=== PATIENT | female | born 1945 | race Caucasian/White ===

== ENCOUNTER 2019-02-25 08:46 | Inpatient (IN) | payer MEDICARE ==
[2019-02-25] VITALS (32 sets, daily range): BP systolic 116–166; BP diastolic 62–97; BMI 26.0
[~2019-02-25] VITALS: Ht 157.5 cm; Wt 64.4 kg
--- NOTE | ~2019-02-25 | HEMODYNAMI ---
PATIENT:SUNI DESAI MEDICAL RECORD: [id number] : 47 [id number] ADMISSION DATE: 02/25/19 Generatedon:02/25/201910:31 Patient name: SUNI DESAI Patient #: [id number] SSN: : Date of study: 02/25/2019 Page: Of Hemodynamic Procedure Report Patient Data Patient Demographics Procedure consent was obtained First Name: SUNI Gender: Female Last Name: LLOYD : 1945 Patient #: [id number] Age: 73 year(s) Race: Unknown Additional ID: [id number] Contact details Address: [facility] State: [place] City: [place] Zip code: [address] Past Medical History Allergies Allergen Reaction Date Comments Reported Other allergy 02/25/2019 PCN Admission Admission Data Admission Date: 02/25/2019 Admission Time: 8:46 Procedure Procedure Types Cath Procedure Diagnostic Procedure LHC LH w/Coronaries Sedation Charges Moderate Sedation up to 15 minutes PCI Procedure Coronary Stent Coronary Stent Initial Procedure Description Procedure Date Procedure Date: 02/25/2019 Procedure Start Time: 9:31 Procedure End Time: 10:15 Procedure Staff Name Function Wilber Reddy MD Performing Physician Janette Au RT Monitor Ananya Raymond RT Scrub Tania Cai RN Nurse Procedure Data Cath Procedure Fluoroscopy Diagnostic fluoroscopy Total fluoroscopy Time: time: 11.1 min 11.1 min Diagnostic fluoroscopy Total fluoroscopy dose: dose: 1083 mGy 1083 mGy Contrast Material Contrast Material Type Amount (ml) Isovue 300 139 Entry Location Entry Primary Successful Side Size Upsize Upsize Entry Closure Succes sful Closure Location (Fr) 1 (Fr) 2 (Fr) Remarks Device Remarks Femoral Right 6 Fr Exoseal artery Short Estimated blood loss: 10 ml Diagnostic catheters Device Type Used For End Catheter Placement MULTIPACK Pigtail 5 Fr Procedure catheter MULTIPACK JL 4.0 5Fr Procedure catheter MULTIPACK 3DRC 5Fr Procedure catheter MULTIPACK JL 4.0 5Fr Procedure catheter MULTIPACK Pigtail 5 Fr Ventriculography catheter Procedure Complications No complications Procedure Medications Medication Administration Route Dosage 0.9% NaCl I.V. 100 ml/hr Oxygen etCO2 Nasal cannula 2 l/min Lidocaine 2% added to field 20 Heparin Flush Bag added to field 2 bags (1000units/500ml NS) Versed I.V. 1 mg Fentanyl I.V. 25 mcg Heparin Bolus I.V. 4500 units Nitroglycerin IC/IA I.C. 100 mcg Versed I.V. 1 mg Fentanyl I.V. 25 mcg Plavix P.O. 600 mg Integrilin Drip I.V. drip 5.5 ml/hr (75mg/100ml) Hemodynamics Rest Heart Rate: 108 (bpm) Pressure Samples Time Site Value (mmHg) Purpose Heart Use Rate(bpm) 9:51 LV 150/19,30 Snapshot 91 9:52 AO 156/89(114) Pullback 87 9:52 LV 152/13,26 Pullback 87 Gradients Valve Time Site 1 Site 2 Mean SEP/DFP Peak To Heart Use (mmHg) (sec/min) Peak Rate (mmHg) (bpm) Aortic 9:52 LV AO 0 87 152/13,26 156/89(114) Calculations Valve P-P Mean Valve Index Valve Source Name Gradient Area Flow (cm2) Aortic 0 0 Snapshots Pre Cath Intra NCS Post Cath Vital Signs Time Heart Resp SPO2 etCO2 NIBP (mmHg) Rhythm Pain Sedation Rate (ipm) (%) (mmHg) Status Level (bpm) 9:27:52 105 27 99 0 134/89(110) NSR 0 (11) 10(A) , No pain 9:31:59 102 29 100 0 121/76(101) NSR 0 (11) 10(A) , No pain 9:36:03 100 29 100 0 123/76(96) NSR 0 (11) 9(A) , No pain 9:41:00 90 25 100 0 140/78(103) NSR 0 (11) 9(A) , No pain 9:46:12 90 25 100 0 140/78(114) NSR 0 (11) 9(A) , No pain 9:50:21 90 25 98 0 142/80(109) NSR 0 (11) 9(A) , No pain 9:55:37 89 27 98 0 134/87(108) NSR 0 (11) 9(A) , No pain 9:59:42 89 26 98 0 139/80(124) NSR 0 (11) 9(A) , No pain 10:03:48 87 26 97 0 152/86(122) NSR 0 (11) 10(A) , No pain 10:08:12 92 23 98 0 101/60(78) NSR 0 (11) 10(A) , No pain 10:12:06 90 23 100 0 120/84(107) NSR 0 (11) 10(A) , No pain Medications Time Medication Route Dose Verified Delivered Reason Notes Effectiveness by by 9:27:24 0.9% NaCl I.V. 100 Wilber Tania used for ml/hr Barry Cai stock control clerk 9:27:35 Oxygen etCO2 2 Wilber Tania used for Nasal l/min Barry Cai procedure cannula RN 9:27:40 Lidocaine 2% added 20ml Wilber Wilber for local to vial Barry Reddy MD anesthetic field 9:27:45 Heparin Flush added 2 Wilber Wilber used for Bag to bags Barry Reddy MD procedure (1000units/500ml field NS) 9:31:31 Versed I.V. 1 mg Wilber Tania for sedation Barry Cai RN 9:31:37 Fentanyl I.V. 25 Wilber Tania for sedation mcg Barry Cai RN 10:04:03 Versed I.V. 1 mg Wilber Tania for sedation Barry Cai RN 10:04:06 Heparin Bolus I.V. 4500 Wilber Tania for verif ied units Barry Cai anticoagulation with Dr. LENA Reddy 10:04:13 Fentanyl I.V. 25 Wilber Tania for sedation mcg Barry Cai RN 10:04:24 Nitroglycerin I.C. 100 Wilber Wilber for IC/IA mcg Barry Reddy MD vasodilation 10:10:44 Plavix P.O. 600 Wilber Tania for mg Barry Cai antiplatelet RN therapy 10:21:02 Integrilin Drip I.V. 5.5 Wilber Tania for (75mg/100ml) drip ml/hr Barry Cai antiplatelet RN therapy Procedure Log Time Note 8:59:45 Tania Cai RN sent for patient. Start room use. 8:59:45 Time tracking: Regular hours (M-F 7:00 - 5:00) 8:59:50 Plan of Care:Hemodynamics will remain stable., Cardiac rhythm will remain stable., Comfort level will be maintained., Respiratory function will remain adequate., Patient/ family verbilizes understanding of procedure., Procedure tolerated without complication., Recovers from procedure without complications.. 9:15:01 Patient received from ED to CCL 2 Alert and oriented. Tansferred to table in Supine position. 9:15:02 Warm blankets applied, and raul hugger turned on for patient comfort. 9:15:02 Correct patient and procedure confirmed by team. 9:15:04 Signed procedure consent form obtained from patient. 9:15:11 ECG and BP/O2 sat monitors applied to patient. 9:22:52 H&P Date Dictated: 02/25/2019 ER History on chart.. 9:22:54 Pre-procedure instructions explained to patient. 9:22:58 Pre-op teaching completed and patient verbalized understanding. 9:23:05 Family unavailable. 9:23:07 Patient NPO since Midnight. 9:24:16 Patient allergic to Other allergyPCN 9:24:19 Is the patient allergic to Iodine/contrast media? No. 9:24:38 Is patient on blood thinner?No 9:24:47 Patient diabetic? No. 9:25:42 Previous problem with sedation/anesthesia? No ? 9:26:09 Snore? Yes 9:26:09 Sleep apnea? Yes 9:26:10 Deviated septum? No 9:26:11 Opens mouth fully? Yes 9:26:12 Sticks out tongue? Yes 9:26:14 Airway obstruction? No ? 9:26:16 Dentures? No ? 9:26:24 IV patent on arrival in right antecubital, left antecubital with 0.9% NaCl at O. 9:26:35 Lab results pending. 9:26:38 Right groin area was prepped with chlora-prep and draped in sterile fashion 9:26:39 Alarms reviewed by R. N. 9:26:40 Sharps counted by scrub and verified by R.N. 9:26:46 Use device set Femoral Dx 9:26:47 ACIST Syringe (23410) opened to sterile field. 9:26:47 Bag Decanter () opened to sterile field. 9:26:48 Medline Cath Pack ([id number]) opened to sterile field. 9:26:48 DIAGNOSTIC WIRE .035 260cm J wire (131280) opened to sterile field. 9:26:49 ACIST Hand Control (91420) opened to sterile field. 9:26:50 ACIST Manifold (46535) opened to sterile field. 9:26:50 DIAGNOSTIC Multipack 5Fr catheter set (PF0809) opened to sterile field. 9:26:51 Tegaderm 4 x 4 (1626W) opened to sterile field. 9:26:57 SHEATH 6FR [place] (ZHT038) opened to sterile field. 9:27:01 Vital chart was started 9:27:02 Baseline sample Acquired. 9:27:06 Rhythm: sinus rhythm , w/ ST elevation 9:27:08 Full Disclosure recording started 9:27:14 Physician arrived 9::14 --------ALL STOP TIME OUT------ 9:27:15 Final Timeout: patient, procedure, and site verified with staff and physician. All members of the team are in agreement. 9:27:16 Right groin site verified by team. 9:27:19 Maximum allowable Isovue 300 dose 300ml. Physician notified. (300ml for normal creatinines. For patients with creatinine of 1.7 or higher multiply weight(kg) x 5 divided by creatinine.) 9:27:21 Fire Safety Assessment: A--An alcohol-based skin anteseptic being used preoperatively., C--Open oxygen or nitrous oxide is being used., D--An ESU, laser, or fiber-optic light is being used. 9:27:24 0.9% NaCl 100 ml/hr I.V. was administered by Tania Cai RN; used for procedure; 9:27:25 Physical assessment completed. ASA score P 3 - A patient with severe systemic disease as per Wilber Reddy MD. 9:27:27 Sedation plan: IV Moderate Sedation Medication:Versed, Fentanyl 9:27:35 Oxygen 2 l/min etCO2 Nasal cannula was administered by Tania Cai RN; used for procedure; 9::40 Lidocaine 2% 20ml vial added to field was administered by Wilber Reddy MD; for local anesthetic; 9:27:45 Heparin Flush Bag (1000units/500ml NS) 2 bags added to field was administered by Wilber Reddy MD; used for procedure; 9:30:40 Use device set Femoral Dx 9:30:43 Procedure started. 9:31:05 Local anesthetic to right femoral artery with Lidocaine 2% by Wilber Reddy MD.INITIAL ACCESS ONLY 9:31:18 ACIST Syringe (17817) opened to sterile field. 9:31:19 Bag Decanter (2002) opened to sterile field. 9:31:19 Medline Cath Pack ([id number]) opened to sterile field. 9:31:20 DIAGNOSTIC WIRE .035 260cm J wire (496544) opened to sterile field. 9:31:23 ACIST Hand Control (75342) opened to sterile field. 9:31:24 ACIST Manifold (58439) opened to sterile field. 9:31:30 DIAGNOSTIC Multipack 5Fr catheter set (DA2626) opened to sterile field. 9:31:30 Tegaderm 4 x 4 (1626W) opened to sterile field. 9:31:31 Versed 1 mg I.V. was administered by Tania Cai RN; for sedation; 9:31:37 Fentanyl 25 mcg I.V. was administered by Tania Cai RN; for sedation; 9:31:43 SHEATH 6FR [place] (ZPV158) opened to sterile field. 9:31:58 A 6 Fr Short sheath was inserted into the Right Femoral artery 9:32:30 Zero performed for pressure channel P1 9:32:34 Zero performed for pressure channel P1 9:34:22 A MULTIPACK Pigtail 5 Fr catheter was advanced over the wire and used for Procedure. 9:34:28 Aortic Root visualized 9:36:44 A MULTIPACK JL 4.0 5Fr catheter was advanced over the wire and used for Procedure. 9:37:25 LCA angiography performed. 9:38:30 Catheter removed. 9:38:40 A MULTIPACK 3DRC 5Fr catheter was advanced over the wire and used for Procedure. 9:39:00 RCA angiography performed. 9:40:03 Catheter removed. 9:42:51 A MULTIPACK JL 4.0 5Fr catheter was advanced over the wire and used for Procedure. 9:46:13 LCA angiography performed. 9:46:23 Catheter removed. 9:47:31 A MULTIPACK Pigtail 5 Fr catheter was advanced over the wire and used for Ventriculography. 9:47:47 LV gram done using HUNTER 9:52:16 LV hemodynamics recorded. 9:52:28 EF : 40 % 9:55:47 Catheter removed. 9:55:55 INFLATOR Merit BasixCompak (MD3967) opened to sterile field. 9:57:12 BMW 300cm [place] 2 J wire ([id number]) opened to sterile field. 9:57:13 TUBING High Pressure Extension Tubing (Barry) (GO2502R) opened to sterile field. 9:57:14 GUIDE 6FR AR 1.0 SH catheter ([id number]) opened to sterile field. 9:57:33 Study PCI Site: [place] dRCA has 80% stenosis. 9:57:50 6 Fr AR1SH guide catheter was inserted over the wire 9:59:30 Catheter removed. unable to cannulate vessel. 9:59:49 GUIDE 6FR JR 4.0 SH catheter ([id number]) opened to sterile field. 10:00:09 6 Fr JR4SH guide catheter was inserted over the wire 10:00:55 BMW wire advanced. 10:04:03 Versed 1 mg I.V. was administered by Tania Cai RN; for sedation; 10:04:06 Heparin Bolus 4500 units I.V. was administered by Tania Cai RN; for anticoagulation; verified with Dr. Reddy 10:04:13 Fentanyl 25 mcg I.V. was administered by Tania Cai RN; for sedation; 10:04:24 Nitroglycerin IC/IA 100 mcg I.C. was administered by Wilber Reddy MD; for vasodilation; 10:08:53 Place stent Inflation Number: 1 A INTEGRITY OTW 2.75 X 26 stent ([id number]) was prepped and advanced across the Mid RCA. The stent was deployed at 11 XENIA for 0:17 (min:sec). 10:10:00 EXOSEAL 6Fr (EX600) opened to sterile field. 10:10:07 Wire removed. 10:10:08 Guide catheter removed. 10:10:22 Sheath removed intact; hemostasis achieved with Exoseal to the Right Femoral artery. 10:10:44 Plavix 600 mg P.O. was administered by Tania Cai RN; for antiplatelet therapy; 10:11:34 Procedure ended.(Physican Out) 10:11:48 Fluoroscopy time 11.10 minutes. 10:11:53 Fluoroscopy dose: 1083 mGy 10:11:53 Flurop Dose total: 1083 10:12:36 Contrast amount:Isovue 300 139ml. 10:12:37 Sharps counted by scrub and verified by R.N. 10:12:39 Insertion/operative site no bleeding no hematoma. 10:12:42 Post right femoral artery:stable 10:12:44 Post Procedure Pulses reassessed and unchanged 10:12:48 Post-procedure physical assessment completed. ASA score P 2 - A patient with mild systemic disease as per Wilber Reddy MD. 10:13:04 Post procedure rhythm: unchanged. 10:13:06 Estimated blood loss: 10 ml 10:13:08 Post procedure instruction explained to patient.Patient verbalizes understanding. 10:13:38 Procedure type changed to Cath procedure, Diagnostic procedure, LHC, LHC w/Coronaries, Sedation Charges, Moderate Sedation up to 15 minutes, PCI procedure, Coronary Stent, Coronary Stent Initial 10:13:40 Procedure and supply charges have been captured, reviewed, submitted and are correct. 10:14:51 Procedure Complication : No complications 10:14:55 Vital chart was stopped 10:14:58 See physician's report for complete and final results. 10:15:19 Report given to [facility]. 10:15:24 Patient transfered to [facility] with Bed. 10:15:26 Procedure ended. 10:15:26 Full Disclosure recording stopped 10:19:26 Femstop placed over the right femoral artery at 184 mmHg. Hemostasis achieved. 10:19:28 FEMSTOP Gold (P66714) opened to sterile field. 10:19:36 End room use (Document Last) 10:21:02 Integrilin Drip (75mg/100ml) 5.5 ml/hr I.V. drip was administered by Tania Cai RN; for antiplatelet therapy; 10:30:40 ACC-PCI Only Patient was given prescriptions, or instructed by Wilber Reddy MD to start/continue the following medications upon discharge: Plavix Intervention Summary Intervention Notes Time ActionType Lesion and Equipment Action# Pressure Duration Attributes Used 10:08:53 Place stent Mid RCA INTEGRITY 1 11 00:17 OTW 2.75 X 26 stent ([id number]) Device Usage Item Name Manufacture Quantity Catalog Hospital Part Current Minimal L ot# / Number Charge Number Stock Stock Serial# Code ACIST Acist 2 53883 153099 916134 555725 20 Syringe Medical (69667) Systems Inc Bag Microtek 2 2001S 535051 49119 568722 5 Decanter Medical Inc. () Medline Medline 2 [id number] 734032 92441 484123 5 Cath Pack ([id number]) DIAGNOSTIC St Amrik 2 128659 169439 109836 885917 30 WIRE .035 260cm J wire (839670) ACIST Hand Acist 2 21566 673361 279781 212829 5 Control Medical (14639) Systems Inc ACIST Acist 2 56411 792243 755705 757972 5 Manifold Medical (97915) Systems Inc DIAGNOSTIC Cardinal 2 PA8667 997753 49871 509971 30 Multipack Health 5Fr catheter set (CV5975) Tegaderm 4 3M 2 1626W 536148 376169 429314 5 x 4 (1626W) SHEATH 6FR Terumo 2 NAI115 922760 498089 571436 40 [place] (MZC752) MULTIPACK Cardinal 2 927749 5 Pigtail 5 Health Fr catheter MULTIPACK Cardinal 1 450156 5 JL 4.0 5Fr Health catheter MULTIPACK Cardinal 1 257707 5 3DRC 5Fr Health catheter INFLATOR Merit 1 BT7938 516825 804193 949332 15 [facility] Medical BasixCompak (AU4069) BMW 300cm Walker 1 [id number] 269973 387154 983834 5 [place] 2 Vascular J wire (5070792D) TUBING High Merit 1 GO3881Y 490494 33746 116319 10 Pressure Medical Extension Tubing (Reddy) (OY1473C) GUIDE 6FR Medtronic 1 [id number] 811714 91538 330993 1 AR 1.0 SH catheter (XL3LJ22DW) GUIDE 6FR Medtronic 1 [id number] 435812 15420 255975 1 JR 4.0 SH catheter (SO3WN20DR) INTEGRITY Medtronic 1 [id number] 223553 609200 988167 1 0 [id number] OTW 2.75 X 26 stent ([id number]) EXOSEAL 6Fr Cardinal 1 EX600 917421 691962 543298 10 (EX600) Health FEMSTOP St Amrik 1 X28419 188844 058957 446861 5 Gold (T08991) Signature Audit [place] Stage Time Signature Unsigned Intra-Procedure 02/25/2019 Janette Au 10:30:56 AM RT(R) Signatures Monitor : Janette Au Signature : RT Date : Time : [address] [place] [address]
[2019-02-25] MEDS ORDERED: COZAAR50 MG (09:14)
[2019-02-25] MEDS ORDERED: PEPCID AC20 MG PO (09:14)
[2019-02-25] MEDS ORDERED: TOPAMAX50 MG PO (09:14)
[2019-02-25] MEDS ORDERED: EFFEXOR XR150 MG PO (09:14)
[2019-02-25] MEDS ORDERED: ADVAIR HFA 230-12 GM INH (09:15)
[2019-02-25] MEDS ORDERED: PROVENTIL/2.5 MG/3 M INH (09:15)
[2019-02-25 12:21] LABS: BASOPHILS 0.1 % (0-2); EOSINOPHILS 0.1 % (0-7); HEMATOCRIT 32.6 % (36.0-48.0); HEMOGLOBIN 10.9 g/dL (12-16); IMMATURE GRANULOCYTES 0.3 % (0-5); LYMPHOCYTES 4.7 % (15-50); MCH 31.5 pg (26.0-34.0); MCHC 33.4 g/dL (31.0-37.0); MCV 94.2 fL (80.0-100.0); MEAN PLATELET VOLUME 11.2 fL (7.4-10.4); MONOCYTES 6.4 % (2-11); NEUTROPHILS 88.4 % (40-80); PLATELET COUNT 209 10x3/uL (130-400); RBC 3.46 10x6/uL (4.00-5.40); WBC 18.4 10x3/uL (4.8-10.8)
[2019-02-25 12:40] LABS: ANION GAP 18.2 mmol/L (8-16); CALCIUM 8.9 mg/dL (8.5-10.1); CARBON DIOXIDE 19.8 mmol/L (21.0-32.0); CREATININE - SERUM 1.8 mg/dL (0.6-1.3)
[2019-02-25 13:12] LABS: INR 1.69 (0.85-1.17); PROTIME 19.3 SECONDS (11.6-15.0)
[2019-02-25 13:49] LABS: APTT > 200.0 SECONDS (22.8-39.4)
[2019-02-25 13:58] LABS: ALBUMIN 2.3 g/dL (3.4-5.0); ANION GAP 17.7 mmol/L (8-16); BILIRUBIN - TOTAL 0.46 mg/dL (0.2-1.3); CALCIUM 8.9 mg/dL (8.5-10.1); CARBON DIOXIDE 20.4 mmol/L (21.0-32.0); CHOL - HDL RATIO 2.4 ratio (2.3-4.1); CREATININE - SERUM 1.8 mg/dL (0.6-1.3); LDL-HDL RATIO 1.1 ratio (1.5-3.5); POTASSIUM - SERUM 3.1 mmol/L (3.5-5.1); PROTEIN - SERUM 6.3 g/dL (6.4-8.2)
[2019-02-25 18:19] LABS: HEMATOCRIT 27.3 % (36.0-48.0); HEMOGLOBIN 9.3 g/dL (12-16)
[2019-02-26] VITALS (25 sets, daily range): BP systolic 105–166; BP diastolic 54–101; Ht 157.5 cm; Wt 64.4 kg
[2019-02-26 01:09] LABS: HEMATOCRIT 23.7 % (36.0-48.0)
[2019-02-26 06:43] LABS: HEMATOCRIT 26.3 % (36.0-48.0); HEMOGLOBIN 9.2 g/dL (12-16); MCH 31.1 pg (26.0-34.0); MCV 88.9 fL (80.0-100.0); MEAN PLATELET VOLUME 11.1 fL (7.4-10.4); PLATELET COUNT 196 10x3/uL (130-400); RBC 2.96 10x6/uL (4.00-5.40); RDW 15.3 % (11.5-14.5); WBC 23.3 10x3/uL (4.8-10.8)
[2019-02-26 06:59] LABS: ANION GAP 20.1 mmol/L (8-16); BILIRUBIN - TOTAL 0.38 mg/dL (0.2-1.3); CALCIUM 8.2 mg/dL (8.5-10.1); CARBON DIOXIDE 15.3 mmol/L (21.0-32.0); PHOSPHOROUS 6.1 mg/dL (2.5-4.9); POTASSIUM - SERUM 3.4 mmol/L (3.5-5.1); PROTEIN - SERUM 5.6 g/dL (6.4-8.2)
[2019-02-26 07:00] LABS: CREATININE - SERUM 2.5 mg/dL (0.6-1.3)
[2019-02-26 09:34] LABS: ANISOCYTOSIS OCC; LYMPHOCYTES 14 % (15-50); MONOCYTES 8 % (2-11); NEUTROPHILS 69 % (40-80); PLATELET ESTIMATE NORMAL; ROULEAUX OCC
[2019-02-26 15:43] LABS: CREATININE - URINE 34.1 mg/dL (30-125); PROTEIN - URINE 80.4 mg/dL (0.0-11.9)
[2019-02-26 15:45] LABS: AMORPHOUS SEDIMENT >1+ /lpf (NONE SEEN); APPEARANCE HAZY (CLEAR); BILIRUBIN NEGATIVE (NEGATIVE); COLOR STRAW (YELLOW); GLUCOSE NEGATIVE (NEGATIVE); KETONE NEGATIVE (NEGATIVE); NITRITE NEGATIVE (NEGATIVE); PROTEIN 1+ mg/dL (NEGATIVE); RED CELLS - URINE OCC /hpf (0-5); UROBILINOGEN NORMAL (NORMAL)
[2019-02-27] VITALS (18 sets, daily range): BP systolic 113–154; BP diastolic 57–94
[2019-02-27 05:58] LABS: HEMATOCRIT 22.9 % (36.0-48.0); MCH 31.1 pg (26.0-34.0); MCHC 34.9 g/dL (31.0-37.0); MCV 89.1 fL (80.0-100.0); MEAN PLATELET VOLUME 11.2 fL (7.4-10.4); PLATELET COUNT 179 10x3/uL (130-400); RBC 2.57 10x6/uL (4.00-5.40); RDW 16.5 % (11.5-14.5); WBC 24.6 10x3/uL (4.8-10.8)
[2019-02-27 06:14] LABS: % SATURATION 24 % (15-55); IRON 46 ug/dl (35-150); TOTAL IRON BIND CAPACITY 186 ug/dl (260-445); UNSAT IRON BIND CAPACITY 140 ug/dl (150-375)
[2019-02-27 06:29] LABS: ALBUMIN 2.1 g/dL (3.4-5.0); ANION GAP 16.1 mmol/L (8-16); BILIRUBIN - TOTAL 0.22 mg/dL (0.2-1.3); CALCIUM 9.2 mg/dL (8.5-10.1); CARBON DIOXIDE 20.1 mmol/L (21.0-32.0); CREATININE - SERUM 2.3 mg/dL (0.6-1.3); PHOSPHOROUS 4.9 mg/dL (2.5-4.9); POTASSIUM - SERUM 4.2 mmol/L (3.5-5.1)
[2019-02-27 07:11] LABS: MONOCYTES 4 % (2-11); NEUTROPHILS 77 % (40-80); ROULEAUX 2+
[2019-02-27 07:12] LABS: PLATELET ESTIMATE NORMAL; SMUDGE CELLS 1+
--- NOTE | 2019-02-28 14:58 | MORECARE ---
CASE MANAGEMENT DISCHARGE SUMMARY PATIENT: SUNI DESAI UNIT: [id number] ADM DATE: 02/25/19 AGE: 73 : 47 SEX: F ROOM/BED: [facility] AUTHOR: QIANA ROJAS PHYSICIAN: REFERRING PHYSICIAN: EUN MAHER MD DATE OF SERVICE: 02/28/19 Discharge Plan Patient Name: SUNI DESAI Facility: [facility]:[place] : 1945 Planned Disposition: Anticipated Discharge Date: Discharge Date: 02/27/2019 Expected LOS: Initial Reviewer: [id number] Initial Review Date: 02/25/2019 Generated: 02/28/19 3:58 pm Patient Name: SUNI DESAI Page [phone] at 4138 All edits/amendments must be made on the electronic document DICTATION DATE: 02/28/191456 CASKET ASSEMBLER METAL: SERGIO 02/28/197 RPT#: [id number] DC DATE:02/27/19 STATUS: DIS IN [facility] [address] [place] [address] END OF REPORT
[2019-03-02 10:09] LABS: OSMOLALITY - URINE 302 (())
== END 2019-02-27 23:06 | DRG 248 ==
LOC: D.ER 08:46 → D.CVICU 10:40
PROVIDERS: Internal Medicine Cardiovascular Disease; Internal Medicine Interventional Cardiology; Internal Medicine Pulmonary Disease; ADMIT Internal Medicine Nephrology; ATTEND Internal Medicine Nephrology
PROC: B2151ZZ Fluoroscopy of Left Heart using Low Osmolar Contrast (ICD-10-PCS; 2019-02-25)
PROC: 4A023N7 Measurement of Cardiac Sampling and Pressure, Left Heart, Percutaneous Approach (ICD-10-PCS; 2019-02-25)
PROC: B2111ZZ Fluoroscopy of Multiple Coronary Arteries using Low Osmolar Contrast (ICD-10-PCS; principal; 2019-02-25 08:59)
PROC: 02703DZ Dilation of Coronary Artery, One Artery with Intraluminal Device, Percutaneous Approach (ICD-10-PCS; 2019-02-25 08:59)
DX: I21.19 ST elevation (STEMI) myocardial infarction involving other coronary artery of inferior wall (principal); I50.21 Acute systolic (congestive) heart failure; K72.00 Acute and subacute hepatic failure without coma; N17.0 Acute kidney failure with tubular necrosis; J44.1 Chronic obstructive pulmonary disease with (acute) exacerbation; D62 Acute posthemorrhagic anemia; I13.0 Hypertensive heart and chronic kidney disease with heart failure and stage 1 through stage 4 chronic kidney disease, or unspecified chronic kidney disease; J98.11 Atelectasis; I71.2 Thoracic aortic aneurysm, without rupture; F31.9 Bipolar disorder, unspecified; N18.3 Chronic kidney disease, stage 3 (moderate); I73.9 Peripheral vascular disease, unspecified; G20 Parkinson's disease; J30.9 Allergic rhinitis, unspecified; M19.90 Unspecified osteoarthritis, unspecified site; M10.9 Gout, unspecified; E87.6 Hypokalemia; E83.39 Other disorders of phosphorus metabolism